=== PATIENT | male | born 1965 | race Hispanic/Latino ===

== ENCOUNTER → 2019-05-27 | Day surgery (SDC) | payer OTHER ==
[2019-05-26 14:01] LABS: BASOPHILS % 0.5 % (0.0-1.0); EOSINOPHILS # (AUTO) 0.1 (0.0-0.4); EOSINOPHILS % 2.1 % (0.0-6.0); HEMATOCRIT 45.8 % (38.2-49.6); HEMOGLOBIN 15.6 g/dL (14.0-18.0); LYMPHOCYTES # (AUTO) 1.6 (1.0-3.2); LYMPHOCYTES % 38.2 % (18.0-39.1); MEAN CORPUSCULAR HEMOGLOBIN 29.4 pg (28-32); MEAN CORPUSCULAR HGB CONC 34.1 g/dL (31-35); MEAN CORPUSCULAR VOLUME 86.4 fL (81-99); MONOCYTES # (AUTO) 0.3 (0.2-0.8); MONOCYTES % 6.2 % (4.4-11.3); NEUTROPHILS # (AUTO) 2.2 (2.1-6.9); NEUTROPHILS % 52.8 % (38.7-80.0); PLATELET COUNT 162 x10e3/uL (140-360); RED CELL DISTRIBUTION WIDTH 12.7 % (11.7-14.4)
[2019-05-26 14:06] LABS: INR 0.89; PROTHROMBIN TIME 12.5 seconds (11.9-14.5)
[2019-05-26 14:13] LABS: ANION GAP 13.3 mmol/L (8-16); BLOOD UREA NITROGEN 17 mg/dL (7-26); BUN/CREATININE RATIO 17 (6-25); CALCIUM 9.6 mg/dL (8.4-10.2); CARBON DIOXIDE 26 mmol/L (22-29); CHLORIDE 102 mmol/L (98-107); CREATININE, SERUM 0.98 mg/dL (0.72-1.25); EST GLOMERULAR FILTRATION RATE > 60 ML/MIN (60-); GLUCOSE 91 mg/dL (74-118); POTASSIUM 4.3 mmol/L (3.5-5.1); SODIUM 137 mmol/L (136-145)
[~2019-05-27] MED LIST: DEXAMETHASONE SOD PHOS INJ 4 MG/ML VIAL ONE; FENTANYL CITRATE/PF 100MCG/2 ML INJ ONE; IOPAMIDOL 610MG/1ML 300 MG/ML VIAL IV ONE; LEVOFLOXACIN 500MG/D5W 100ML 100 ML IV ONE; LIDOCAINE HCL 2% LOCAL INJ 5 ML SDV VIAL INJ ONE; MIDAZOLAM HCL 2 MG/2 ML VIAL ONE; ONDANSETRON HCL INJ 2MG/ML 2ML 2 MG/ML VIAL ONE; PROPOFOL IV EMULSION 10 MG/ML 20 ML VIAL ONE; SEVOFLURANE INHAL SOLN 250 ML PEN BTL ONE
--- OUTSIDE RECORDS SUMMARY | 2019-05-27 08:22 | XMS REPORT | Clinical Summary ---
Author Author Soren Shinto Organization [facility] Address Unknown Phone Unavailable Care Team Providers Care Parts Counter Clerk Name Role Phone Asked, No Pcp PCP Unavailable Allergies No Known Allergies Medications No known medications Active Problems Not on file Immunizations Name Dates Previously Given Next Due Tdap 10/31/2017 Social History Date Tobacco Use Types Packs/Day Years Used Never Smoker Sex Assigned at Date Recorded Not on file Industry Job Start Date Occupation Not on file Not on file Not on file Travel End Travel History Travel Start No recent travel history available. Last Filed Vital Signs Not on file Plan of Treatment Health Maintenance Due Date Last Done Comments COLONOSCOPY SCREENING 2014 SHINGLES VACCINES (#1) 2014 INFLUENZA VACCINE 06/11/2019 Results Not on fileafter 05/26/2018 Insurance Type Payer Benefit Subscriber ID Effective Phone Address Plan / Dates Group Workers Comp WORKERS COMP [place] xxxxxxxxxxxxx 2017- [employer] Present Workers Comp WORKERS COMP [facility] xxxxxxxxx 2017 WORKER'S -Present COMP [facility] CIGNA CIGNA xxxxxxxxx 2016- BEHAVIORAL Present [employer] Workers Employer [id number] Comp ([place]) [place] [address] Advance Directives Patient has advance care planning documents on file. For more information, syd e contact: Soren Gandhi [address] [place] [id number]
[2019-05-27 12:05] VITALS: BP 129/87
--- NOTE | 2019-05-27 12:06 | Operative Report ---
DATE OF PROCEDURE: 05/27/2019 SURGEON: Jeremias Bain MD PREOPERATIVE DIAGNOSES: 1. Recurrent prostatitis. 2. Chronic prostatitis. 3. Benign prostatic hypertrophy, nonocclusive. 4. Spermatocele. OPERATIONS: 1. Cystourethroscopy. 2. Bilateral retrograde pyelograms. ANESTHESIA: General. INDICATIONS: Mr. Damon is a 53-year-old male who was referred with chief complaint of recurrent urinary tract infection and prostatitis. He was treated with several courses of antibiotics in the past. DESCRIPTION OF PROCEDURE: This patient was placed on the table in the lithotomy position and was prepped and draped in a sterile manner after satisfactory anesthesia. A #23-Mohawk cystoscope was used and cystourethroscopy was performed, and it was noted that the urethra was normal. The prostatic urethra was about 3 cm long, nonocclusive, but very congested. Cystoscopy was then performed using both right angle and Foroblique lens, and there was significant inflammation at the level of the trigone and the bladder neck adjacent to the prostate. The remainder part of the bladder was normal. Right retrograde pyelogram was then performed using #8 bulb tip ureteral catheter inserted at the right ureteral orifice and 5 mL of contrast material was injected. The retrograde performed was normal. Left retrograde pyelogram was performed similarly and was normal with bifid left renal pelvis. The bladder was drained. Cystoscope was removed and the patient was taken to the recovery room in satisfactory condition. Plan for this patient is to be placed on Cipro 500 mg twice a day for 4 weeks. Ultracet tablet one every 6 to 8 hours p.r.n. and was given 20. He is to return to the office in one month. Jeremias Bain MD MA/JOSE ENRIQUEL /[id number]
== END | disposition home or self-care (01) ==
LOC: OR 08:15
PROVIDERS: ATTEND Specialist
DX: N40.0 Benign prostatic hyperplasia without lower urinary tract symptoms (principal); N41.1 Chronic prostatitis; N43.40 Spermatocele of epididymis, unspecified; R00.1 Bradycardia, unspecified; Z01.810 Encounter for preprocedural cardiovascular examination; Z01.812 Encounter for preprocedural laboratory examination
CPT/HCPCS: 36415; 52005; 74420; 80048; 85025; 85610; 93005; C1758; J1100; J1956; J2001; J2250; J2405; J2704; J3010; Q9967